=== PATIENT | male | born 1980 | race Two or more races ===

== ENCOUNTER 2025-06-29 14:57 | Outpatient (CLI) | payer MEDICAID ==
[2025-06-29 15:36] LABS: Hematocrit 49.1 % (41.0-53.0); Hemoglobin 16.2 g/dL (13.5-17.5); Mean Corpuscular Hemoglobin 27.5 pg (28.0-32.0); Mean Corpuscular Volume 83.1 fL (80.0-100.0); Nucleated Red Blood Cells % 0.0 %
[2025-06-29 16:15] LABS: Alanine Aminotransferase 37 U/L (7-40); Albumin 4.5 g/dL (3.2-4.8); Alkaline Phosphatase 90 U/L (46-116); Anion Gap 6 (5-15); BUN/Creatinine Ratio 7.1 (10.0-20.0); Blood Urea Nitrogen 9 mg/dL (9-23); Calcium 9.3 mg/dL (8.7-10.4); Carbon Dioxide 28 mmol/L (20-31); Cholesterol 178 mg/dL (< 200); Glucose 83 mg/dL (74-106); HDL Cholesterol 51 mg/dL (40-59); Potassium 3.8 mmol/L (3.5-5.1); Sodium 143 mmol/L (136-145); Total Protein 7.1 g/dL (5.7-8.2); Triglycerides 76 mg/dL (< 150)
[2025-06-29 16:16] LABS: Bilirubin, Total 0.7 mg/dL (0.2-1.0)
[2025-06-29 16:30] LABS: Chloride 109 mmol/L (98-107)
[2025-07-01 05:09] LABS: Chlamydia Trachomatis, NAA Negative (Negative); Neisseria gonorrhoeae, NAA Negative (Negative)
[2025-07-01 12:50] LABS: Hepatitis A Total Antibody Positive (Negative); Hepatitis B Surface Antigen Negative (Negative); Hepatitis C Antibody Negative (Negative)
== END 2025-06-29 17:00 | disposition home or self-care (01) ==
LOC: LAB 14:57
PROVIDERS: ATTEND Licensed Practical Nurse
DX: E55.9 Vitamin D deficiency, unspecified (principal); R53.0 Neoplastic (malignant) related fatigue; Z11.3 Encounter for screening for infections with a predominantly sexual mode of transmission; Z00.01 Encounter for general adult medical examination with abnormal findings; Z13.1 Encounter for screening for diabetes mellitus; Z13.29 Encounter for screening for other suspected endocrine disorder
CPT/HCPCS: 36415; 80053; 80061; 82043; 82306; 83036; 84443; 85025; 86703; 86704; 86706; 86708; 86780; 86803; 87340

== ENCOUNTER 2025-07-08 09:00 | Outpatient (CLI) | payer MEDICAID ==
--- NOTE | 2025-07-08 15:15 | DVHSR ---
APPROVED REPORT EXAM: Two-dimensional and M-mode echocardiogram with Doppler and color Doppler. INDICATION Hypertension RISK FACTORS Height: 75, Weight: 200 DIMENSIONS LVDd 4.0 (3.8-5.7cm) LA (2D) 3.8 (1.9-4.0cm) Aortic Root 3.2 (2.0-3.7cm) LVDs 2.9 (2.5-4.0cm) LA (MM) (1.9-4.0cm) Aortic Cusp Exc 1.6 (1.5-2.0cm) EF (%) 55.0 (55-70%) Rt. Atrium 3.7 (1.9-4.0cm) Asc. Aorta 3.8 cm IVSd 1.3 (0.7-1.1cm) RV (D) (1.8-2.4cm) PWd 1.3 (0.7-1.1cm) Mitral Valve Mitral Mitral Stenosis E wave 0.72m/s MV Mean GR. mmHg A wave 0.66m/s MV Peak GR. mmHg E/A ratio 1.1 2D MVA cm2 DECEL Time 175ms PRESS 1/2 Time ms Aortic Valve Aortic Valve Aortic Stenosis V1 0.93m/s AO Mean GR. 2mmHg V2 0.93m/s AO Peak GR. 3mmHg LVOT Diameter 2.3 (1.8-2.4cm) Doppler UMANG 4.15cm2 Pulmonic Valve V2 0.83m/s Tricuspid Valve RVSP 3mmHg Conclusion Sinus rhythm. Concentric LVH. Valves are normal. EF of 60% with normal RV function. Dopplers unremarkable. No pericardial effusion masses or vegetations.
== END 2025-07-11 17:00 | disposition home or self-care (01) ==
LOC: XYW 09:00
PROVIDERS: ATTEND Licensed Practical Nurse
DX: I08.0 Rheumatic disorders of both mitral and aortic valves (principal); I11.9 Hypertensive heart disease without heart failure
CPT/HCPCS: 93306

== ENCOUNTER 2025-07-08 10:41 | Outpatient (CLI) | payer MEDICAID | END 2025-07-11 17:00 | disposition home or self-care (01) | LOC: LAB 10:41 | PROVIDERS: ATTEND Licensed Practical Nurse | DX: Z12.11 Encounter for screening for malignant neoplasm of colon (principal) | CPT/HCPCS: 82274 ==